=== PATIENT | male | born 1965 | race Caucasian/White ===

== ENCOUNTER 2018-05-08 18:53 | Emergency (ER) | payer BC, SELFPAY ==
[2018-05-08] VITALS (28 sets, daily range): BP systolic 146–176; BP diastolic 71–99; PULSE 56–76; RESP 11–27; TEMP 36.7–37; O2SAT 93–98
--- NOTE | 2018-05-08 19:00 | DI.RPTCT_ITS ---
SYMPTOM/DIAGNOSIS: LT SIDED WEAKNESS, LT FACIAL DROOP, R/O ACUTE PROCESS NONCONTRAST HEAD CT: There are no prior comparison exams. There is a 2 cm in diameter acute parenchymal hemorrhage in the right basal ganglia. There is minimal surrounding edema. There is no midline shift. No additional areas of hemorrhage, infarct or mass is seen. The ventricles area normal in size. There is no significant underlying atrophy. IMPRESSION: Acute right basal ganglia hemorrhage.
--- NOTE | 2018-05-08 19:07 | ED.GENADUL ---
Disposition Clinical Impression: Acute spontaneous intraparenchymal intracranial hemorrhage, Accelerated hypertension, Hypokalemia, Elevated troponin Disposition: [facility] Condition: Serious Medical Decision Making - Lab Data Laboratory Tests 05/08/18 05/08/18 05/08/18 19:15 19:15 19:15 WBC 11.95 H RBC 4.49 L Hgb 13.3 L Hct 38.3 L MCV 85.3 MCH 29.6 MCHC 34.7 RDW 13.3 Plt Count 233 MPV 10.2 Immature Gran % 0.2 Neutrophils % 77.8 Lymphocytes % 13.6 Monocytes % 7.3 Eosinophils % 0.8 Basophils % 0.3 Absolute Neutrophils 9.30 H Absolute Lymphocytes 1.63 Absolute Monocytes 0.87 H Absolute Eosinophils 0.10 Absolute Basophils 0.04 PT 10.7 INR 1.1 APTT 21.6 Sodium 144 Potassium 3.0 L Chloride 105 Carbon Dioxide 29.9 Anion Gap 9.1 BUN 22 H Creatinine 1.06 Estimated GFR/1.73 m2 >= 60.00 Glucose 86 Calcium 8.5 Magnesium 2.0 Total Bilirubin 0.5 AST 36 ALT 40 Alkaline Phosphatase 50 Troponin I 0.32 H Total Protein 7.2 Albumin 3.6 - EKG Data -: EKG Interpreted by Md 05/08/181909: 63 bpm. Sinus. Incomplete right bundle branch block. [address] depression noted in V6. No acute ST elevation. - Radiology Data Radiology results: report reviewed, image reviewed CT head: 1. 20 x 60 mm acute parenchymal hematoma centered in the right lentiform nuclei. 2. Minimal surrounding edema with no significant midline shift. CXR: no acute disease - Medical Decision Making 1899 -- 52-year-old male with history of hypertension anxiety who presents with left facial droop, left arm and leg weakness since 5:10 PM. He was normal just prior to this. On arrival to ED, patient awake and alert with no movement and left upper extremity and 4/5 movement in left lower extremity noted left facial droop. NIH score 10. GCS 15. Patient is able to speak in full sentences with slight slurring of speech but is otherwise awake and alert and oriented. Patient sent directly to CT for stat CT head and CTA head and neck. 1907 -- radiology called noting a bleed. On review of CT appears w/in R basal ganglia. CTA head/neck cancelled. [facility] neurosurgery paged. 1919 -- discussed with [facility] neurology -accepts patient for transfer. Would like nicardipine drip to keep SBP < 160. Recommend platelet transfusion if platelet count < 100. Also requested CTA head and neck. I discussed I had rather transfer patient as soon as possible before waiting for further testing. Accepting physician is Dr. Pablo. 1929 -- blood pressure 174/91. Patient given 15 mg labetalol. Heart rate had been high 50s to low 60s and remained stable. Patient then started on nicardipine drip. SBP improved to 155. 1944 [facility] continue nicardipine drip or give labetalol push due to no available critical care medic. Will trial patient off nicardipine drip and see if BP can remain stable < 160 and consider labetalol push then transfer. 1999 -- D/w [facility] ground and they can be here in 60 to 90 minutes. Concern for delay in transfer as it will take 2 to 2.5 hours for pt to get to tertiary care center. 2019 -- SBP 163. Will restart the nicardipine gtt and Dr. Phipps will ride with minal to [facility]. Airway remains intact. Pt awake and alert. 2029 -- Labs reviewed. Potassium 3. Will replete. Troponin 0.32. Pt denies any chest pain, shortness of breath and had no acute EKG findings. Unsure if demand ischemia. Results were d/w [facility] neurology and then will trend troponins. History of Present Illness - General Chief complaint: CVA/TIA Stated complaint: CALEX Time Seen by Provider: 05/08/18 18:54 Source: patient Mode of arrival: ambulatory Limitations: no limitations - History of Present Illness Initial comments: Patient is a 52-year-old male with history of hypertension who presents with sudden onset of left arm and leg weakness with facial droop that started while walking his dog at 5:10 PM tonight. Patient states he was unable to walk and fell down to the ground due to his leg weakness. Pt has not ambulated since this. EMS arrived and found pt awake and alert with notable L facial droop, L arm and leg weakness. - Related Data Hydrochlorothiazide 12.5 mg PO DAILY 05/08/18 Ibuprofen 800 mg PO TID PRN 05/08/18 Lisinopril 20 mg PO DAILY 05/08/18 Multivitamin [Multivitamins] 1 tab PO DAILY 05/08/18 Venlafaxine [Effexor] 37.5 mg PO DAILY 05/08/18 Allergies Allergy/AdvReac Type Severity Reaction Status Date / Time No Known Allergies Allergy Unverified 05/08/18 19:14 Review of Systems Constitutional: denies: chills, fever Eyes: denies: eye pain ENT: denies: ear pain, dental pain Respiratory: denies: cough, shortness of breath Cardiovascular: denies: chest pain, dyspnea on exertion Gastrointestinal: denies: abdominal pain, nausea, vomiting Genitourinary: denies: urgency, dysuria, frequency Musculoskeletal: denies: back pain Skin: denies: rash, lesions Neurological: weakness, numbness. denies: headache Past Medical History - Past Medical History Medical history: hypertension Psychiatric history: anxiety General Exam - General Limitations: no limitations General appearance: alert, in no apparent distress - Head Head exam: Present: atraumatic, normocephalic - Eye Eye exam: Present: PERRL, EOMI - ENT ENT exam: Present: mucous membranes moist - Neck Neck exam: Present: normal inspection - Respiratory Respiratory exam: Present: normal lung sounds bilaterally. Absent: respiratory distress, wheezes, rales, rhonchi, stridor - Cardiovascular Cardiovascular Exam: Present: regular rate, normal rhythm. Absent: bradycardia, tachycardia - GI/Abdominal GI/Abdominal exam: Present: soft, normal bowel sounds. Absent: distended, tenderness, guarding, rebound, rigid - Neurological Exam Neurological exam: Present: alert, oriented X3, other (Left facial droop. Muscle strength left arm 0/5. Muscle strength left leg 4/5. Muscle strength right arm 5/5, muscle strength right leg 5/5.) - Psychiatric Psychiatric exam: Present: normal affect - Skin Skin exam: Present: warm, dry, intact
--- NOTE | 2018-05-08 19:11 | DI.VRAD_ITS ---
EXAM: CT Head Without Intravenous Contrast CLINICAL HISTORY: 52 years old, male; Signs and symptoms; Weakness, extremity; Left TECHNIQUE: Axial computed tomography images of the head/brain without intravenous contrast. Coronal and sagittal reformatted images were created and reviewed. COMPARISON: No relevant prior studies available. FINDINGS: Brain: 20 x 16 mm acute parenchymal hematoma centered in the right lentiform nuclei. Minimal periventricular white matter hypodensity. Midline shift: Minimal surrounding edema with no significant midline shift. Ventricles: No focal pathology. No ventriculomegaly. Bones/joints: No focal pathology. No acute fracture. Soft tissues: Unremarkable. Sinuses: No significant mucosal thickening. Mastoid air cells: Unremarkable as visualized. No mastoid effusion. IMPRESSION: 1. 20 x 16 mm acute parenchymal hematoma centered in the right lentiform nuclei. 2. Minimal surrounding edema with no significant midline shift. Dictated and Authenticated by: Shreya Rock MD. Ordering:JUAN LANIER MD
[2018-05-08 19:23] LABS: Abs Immature Grans 0.02 k/cumm (0.0-0.09); Absolute Basophil Count 0.04 k/cumm (0.0-0.2); Absolute Lymphocyte Count 1.63 k/cumm (1.2-3.4); Absolute Monocyte Count 0.87 k/cumm (0.11-0.7); Basophils % 0.3; Eosinophils % 0.8; HCT 38.3 % (40.0-50.0); HGB 13.3 g/dL (13.5-17.5); Immature Grans % 0.2; Lymphocytes % 13.6; Mean Corp. HGB Concentration 34.7 g/dL (32.0-36.0); Mean Corpuscular Hemoglobin 29.6 pg (27.0-33.0); Mean Corpuscular Volume 85.3 fL (80-95); Mean Platelet Volume 10.2 fL (8.0-11.0); Monocytes % 7.3; Neutrophils % 77.8; Platelet Count 233 x1000/uL (130-400); RBC 4.49 m/cumm (4.50-6.00); RBC Distribution Width 13.3 % (11.8-14.1); White Blood Cell Count 11.95 k/cumm (4.4-10.8)
[2018-05-08] MEDS: Labetalol 100 MG/20 ML VIAL 20 MG IVP (19:32)
--- NOTE | 2018-05-08 19:42 | DI.REPORT_ITS ---
SYMPTOM/DIAGNOSIS: LT SIDED WEAKNESS, R/O ACUTE DISEASE. PORTABLE CHEST: Comparison is made with 12 April 2011. The heart size is within normal limits. The right costophrenic angle is not included on the exam. The lungs are clear. IMPRESSION: Negative portable chest.
[2018-05-08] MEDS: Normal Saline 1,000 ML 125 ML IV (19:50)
[2018-05-08] MEDS: Normal Saline Flush 10 ML SYR IVP (19:50)
[2018-05-08 19:51] LABS: INR 1.1 (1.0-3.5); PTT Activated 21.6 sec (21.0-31.4); Prothrombin Time 10.7 sec (9.3-10.8)
--- NOTE | 2018-05-08 20:01 | DI.VRAD_ITS ---
EXAM: XR Chest, 1 View CLINICAL HISTORY: 52 years old, male; Signs and symptoms; Other: Stroke TECHNIQUE: Frontal view of the chest. COMPARISON: No relevant prior studies available. FINDINGS: Lungs: No airspace consolidation. Pleural space: The right costophrenic angle is excluded. No pneumothorax. Heart: No focal pathology. No cardiomegaly. Mediastinum: Unremarkable. Bones/joints: Unremarkable. IMPRESSION: No acute cardiopulmonary pathology on portable imaging. Dictated and Authenticated by: Shreya Rock MD. Ordering:JUAN LANIER MD
[2018-05-08 20:11] LABS: ALT 40 U/L (12-78); AST 36 U/L (15-37); Albumin 3.6 g/dL (3.4-5.0); Alkaline Phosphatase 50 U/L (46-116); Anion Gap 9.1 mmol/L (3-11); BUN 22 mg/dL (7-18); Bilirubin, Total 0.5 mg/dL (0.2-1.0); CO2 29.9 mmol/L (21.0-32.0); CREATININE 1.06 mg/dL (0.70-1.30); Calcium 8.5 mg/dL (8.5-10.1); Chloride 105 mmol/L (98-107); Glucose 86 mg/dL (70-100); Sodium 144 mmol/L (136-145); Total Protein 7.2 g/dL (6.4-8.2)
[2018-05-08] MEDS: POTASSIUM CHLORIDE 20 MEQ/100 ML BAG 50 MEQ IVPB (20:15)
[2018-05-08 20:27] LABS: Troponin I 0.32 ng/mL (0.00-0.06)
== END 2018-05-08 20:32 | disposition short-term general hospital (02) ==
PROVIDERS: Emergency Provider Physician Assistant; PCP Family Medicine
DX: I61.8 Other nontraumatic intracerebral hemorrhage (principal); I16.0 Hypertensive urgency; I10 Essential (primary) hypertension; E87.6 Hypokalemia; R79.89 Other specified abnormal findings of blood chemistry; R40.2412 Glasgow coma scale score 13-15, at arrival to emergency department
CPT/HCPCS: 36415; 80053; 93005; 96365; 96375; 96376; 99285; 99291; 99292; 70450; 71045; 83735; 84484; 85025; 85610; 85730; 93010; J3480; J3490

== ENCOUNTER 2019-03-04 07:55 | Emergency (ER) | payer BC, SELFPAY ==
[2019-03-04] VITALS (10 sets, daily range): BP systolic 122–152; BP diastolic 70–77; PULSE 62–79; RESP 10–21; TEMP 36.7–37.1; O2SAT 93–98
--- NOTE | 2019-03-04 08:15 | W.ED.GENAD ---
Discharge Plan Disposition Patient Disposition: HOME Condition: Improving Discharge Details Chief Complaint: Nk/Back Pain Clinical Impression: Lumbago Primary Care Provider: Christopher Penaloza ED Provider: Casey Burns Home Meds and New Rx's Prescriptions: New prednisone 20 mg tablet 40 mg PO DAILY 5 Days Qty: 10 RF: 0 diazepam [Valium] 2 mg tablet 2 mg PO BID-TID PRN (Reason: muscle spasm) Qty: 10 RF: 0 lidocaine [Lidoderm] 5 % adhesive patch,medicated 1 patch TP DAILY Qty: 15 RF: 0 Continued atorvastatin [Lipitor] 10 mg Tablet 10 mg PO DAILY RF: 0 ibuprofen 800 MG tablet 800 mg PO TID PRNRF: 0 venlafaxine 25 MG tablet 37.5 mg PO DAILY RF: 0 lisinopril 20 MG tablet 20 mg PO DAILY RF: 0 hydrochlorothiazide 12.5 MG capsule 12.5 mg PO DAILY RF: 0 multivitamin 1 EACH capsule 1 tab PO DAILY RF: 0 Discharge Instructions Instructions: Low Back Strain (ED) Additional Instructions: Follow-up with physical therapy as we discussed. May apply heat and alternate with ice today for comfort. Continue Tylenol and/or ibuprofen if needed for pain. Next dose of ibuprofen would be in 6 hours. Valium if needed for muscle relaxation. No alcohol or driving with this medication. Remove Lidoderm patch in 12 hours time. You may use [id number] Lidoderm patches if it is effective for you. Return for numbness or weakness of the lower extremity, difficulty with urination, or any other acute concern Stand Alone Forms: Physical Therapy Referral Discharge Data Discharge Date/Time-TO BE ENTERED AT DEPARTURE: 03/04/19 10:35 Medical Decision Making 53-year-old male who was lifting weights today. With 60 pounds in a squat position while rising with the weight he felt left low back pain. He stopped performing that exercise but did continue with lap pull down, benchpress, and then while in the shower developed progressive tightening and pain in the left low back. His vital signs are normal. His exam reveals intact motor, sensation, reflexes, great toe proprioception. IV placed, labs obtained, patient given dexamethasone, steroids, fluids, parenteral magnesium, Valium. Patient did have improvement following medications. He remains motor and sensory intact. I will refer him for physical therapy. We will place him on a small burst of steroid. He will be given a small number of Valium to be used for muscle relaxation. He understands homecare as well as follow-up and return precautions. Pt able to ambulate without assistance. I discussed the plan of care with he and his prior to discharge Lab Data Lab results reviewed: Yes I reviewed the patient's lab results. Laboratory Results - last 24 hr 03/04/19 03/04/19 03/04/19 08:30 08:30 08:30 WBC 11.72 H RBC 4.58 Hgb 13.7 Hct 38.9 L MCV 84.9 MCH 29.9 MCHC 35.2 RDW 13.1 Plt Count 316 MPV 9.6 Immature Gran % 0.5 Neutrophils % 78.2 Lymphocytes % 13.9 Monocytes % 5.7 Eosinophils % 1.4 Basophils % 0.3 Absolute Neutrophils 9.17 H Absolute Lymphocytes 1.63 Absolute Monocytes 0.67 Absolute Eosinophils 0.16 Absolute Basophils 0.04 PT 10.0 INR 1.0 Sodium 139 Potassium 4.0 Chloride 101 Carbon Dioxide 28.2 Anion Gap 9.8 BUN 17 Creatinine 0.93 Estimated GFR/1.73 m2 >= 60.00 Glucose 118 H Calcium 9.5 HPI General Mode of arrival: ambulatory. Date/Time Provider Initiated Documentation: 03/04/19 07:57. Limitations to Documentation: no limitations. Information obtained by: patient. History of Present Illness 53 year old M presents to the emergency department with the chief complaint of Left low back pain, described as severe, and is localized to the back and left. Patient distal. Patient started experiencing this minute(s) and it has been constant. Rest improves symptom(s), Movement worsens symptoms . Patient notes no other symptoms.; denies fever/chills and headaches. Patient did receive the following treatments prior to arrival, none Related Data Home Medications Medication Instructions Recorded Confirmed hydrochlorothiazide 12.5 mg PO DAILY 05/08/18 05/08/18 ibuprofen 800 mg PO TID PRN 05/08/18 03/04/19 lisinopril 20 mg PO DAILY 05/08/18 05/08/18 multivitamin 1 tab PO DAILY 05/08/18 03/04/19 venlafaxine 37.5 mg PO DAILY 05/08/18 03/04/19 atorvastatin [Lipitor] 10 mg PO DAILY 03/04/19 diazepam [Valium] 2 mg PO BID-TID PRN #10 tab 03/04/19 lidocaine [Lidoderm] 1 patch TP DAILY #15 each 03/04/19 prednisone 40 mg PO DAILY 5 Days #10 tab 03/04/19 Previous Rx's Medication Instructions Recorded diazepam [Valium] 2 mg PO BID-TID PRN #10 tab 03/04/19 lidocaine [Lidoderm] 1 patch TP DAILY #15 each 03/04/19 prednisone 40 mg PO DAILY 5 Days #10 tab 03/04/19 Allergies Allergy/AdvReac Type Severity Reaction Status Date / Time No Known Allergies Allergy Unverified 03/04/19 08:01 General Stated Complaint: Nk/Back Pain TIKI: 3 Review of Systems Review of Systems 03/01 reviewed and otherwise neg [facility] Medical History Anxiety (Chronic) CVA (cerebral vascular accident) (Chronic) Hypertension (Chronic) Social History Smoking/Tobacco Use Status: Never Alcohol Intake: current Alcohol Intake frequency: holidays/special occasions only Drug use: Never Substance use type: does not use Do you feel safe in your relationship?: Yes Exam Narrative Exam Narrative: GEN: awake, alert, oriented 3. Pleasant, well groomed, interactive and in moderate distress. HEAD: Normocephalic, atraumatic ENT: Mucous membranes moist, oropharynx unremarkable, External ear exam unremarkable EYES: PERRL, EOMI NECK: Full ROM, no MICHAEL, no menigismus CHEST/RESP: Nontender, clear to auscultation bilateral, no wheeze/rhonchi/rales CARDIOVASCULAR: RRR, no murmur, rub arnulfo. 2+ Rad pulse bilateral ABDOMEN: Soft, nontender, no mass. +Bowel sounds Back: No midline tenderness, step-off, deformity. There is left paralumbar spinous tenderness and minimal SI joint tenderness with no sciatic notch tenderness. EXT: Full ROM, no edema, no rash. Sensation intact throughout lower extremity including saddle distribution. Motor is 5 out of 5 but is limited by pain on the left. The reflexes are 2+ and brisk, symmetric at the patella and ankle bilaterally. Great toe proprioception intact. Neuro: Grossly normal neurologic exam, conversant, interactive. Psych: Speech fluent, thoughts congruent, affect normal Course Vital Signs Temperature 37.1 C 03/04/19 08:00 Pulse 79 03/04/19 08:00 Respiratory Rate 20 03/04/19 08:00 Blood Pressure 140/73 03/04/19 08:00 Pulse Oximetry 98 03/04/19 08:00 Temperature 37.1 C 03/04/19 08:00 Temperature Source Skin 03/04/19 08:00 Pulse 79 03/04/19 08:00 Respiratory Rate 20 03/04/19 08:00 Respiratory Effort Non-Labored 03/04/19 08:04 Blood Pressure 140/73 03/04/19 08:00 Blood Pressure Position Sitting 03/04/19 08:00 Pulse Oximetry 98 03/04/19 08:00 Oxygen Delivery Method Room Air 03/04/19 08:00 Oxygen Flow Rate 0 03/04/19 08:00 Pain Level 7 03/04/19 08:00
[2019-03-04] MEDS: Normal Saline 1,000 ML 1000 ML IV (08:40)
[2019-03-04] MEDS: diazePAM 10 MG/2 ML SYR 2.5 MG IVP ×2 (08:40→09:32)
[2019-03-04] MEDS: Ketorolac 30 MG/ML VIAL IVP (08:41)
[2019-03-04] MEDS: Dexamethasone 10 MG/ML VIAL IVP (08:41)
[2019-03-04 08:42] LABS: Abs Immature Grans 0.06 k/cumm (0.0-0.09); Absolute Eosinophil Count 0.16 k/cumm (0.0-0.7); Absolute Lymphocyte Count 1.63 k/cumm (1.2-3.4); Absolute Monocyte Count 0.67 k/cumm (0.11-0.7); Absolute Neutrophil Count 9.17 k/cumm (1.2-6.7); Basophils % 0.3; Eosinophils % 1.4; HCT 38.9 % (40.0-50.0); HGB 13.7 g/dL (13.5-17.5); Immature Grans % 0.5; Lymphocytes % 13.9; Mean Corp. HGB Concentration 35.2 g/dL (32.0-36.0); Mean Corpuscular Hemoglobin 29.9 pg (27.0-33.0); Mean Corpuscular Volume 84.9 fL (80-95); Mean Platelet Volume 9.6 fL (8.0-11.0); Monocytes % 5.7; Neutrophils % 78.2; Platelet Count 316 x1000/uL (130-400); RBC 4.58 m/cumm (4.50-6.00); RBC Distribution Width 13.1 % (11.8-14.1); White Blood Cell Count 11.72 k/cumm (4.4-10.8)
[2019-03-04] MEDS: MAGNESIUM SULFATE 1 GM/100 ML BAG IVPB (08:42)
[2019-03-04 08:43] LABS: Absolute Basophil Count 0.04 k/cumm (0.0-0.2)
[2019-03-04 08:51] LABS: Anion Gap 9.8 mmol/L (3-11); BUN 17 mg/dL (7-18); CO2 28.2 mmol/L (21.0-32.0); CREATININE 0.93 mg/dL (0.70-1.30); Calcium 9.5 mg/dL (8.5-10.1); Chloride 101 mmol/L (98-107); Glucose 118 mg/dL (70-100); Sodium 139 mmol/L (136-145)
[2019-03-04] MEDS: HYDROmorphone 2 MG/ML VIAL 0.5 MG IVP (09:33)
[2019-03-04] MEDS: Lidocaine 5% Patch 1 PATCH TP (10:24)
== END 2019-03-04 10:35 | disposition home or self-care (01) ==
PROVIDERS: Emergency Provider Emergency Medicine; PCP Family Medicine
DX: M54.5 Low back pain (principal); X50.3XXA Overexertion from repetitive movements, initial encounter
CPT/HCPCS: 80048; 96361; 96365; 99284; 85025; 85610; J1100; J1885; J3360; J3475